=== PATIENT | female | born 1975 | race Caucasian/White ===

== ENCOUNTER 2016-12-04 12:13 | Outpatient (CLI) | payer OTHER ==
[2016-12-04 12:36] LABS: BASOPHILS % 0.4 (0.0-1.5); EOSINOPHILS % 3.5 % (0.0-6.8); LYMPHOCYTES # 2.4 # k/uL (0.6-4.0); MEAN CORPUSCULAR HEMOGLOBIN 29.9 pg (28.0-34.0); MONOCYTES # 0.2 # k/uL (0.0-0.9); MONOCYTES % 3.8 % (0.0-11.0); NEUTROPHILS # 3.7 # k/uL (1.4-7.7)
[2016-12-04 13:20] LABS: eGFR (African) > 60; eGFR (Non-African) > 60
== END 2016-12-04 12:15 ==
LOC: LAB 12:13
PROVIDERS: ATTEND Family Medicine
DX: Z00.00 Encounter for general adult medical examination without abnormal findings (principal)
CPT/HCPCS: 36415; 80053; 80061; 83001; 83036; 84443; 85025

== ENCOUNTER 2017-06-22 16:47 | Outpatient (CLI) | payer OTHER | END 2017-06-22 16:50 | LOC: LAB 16:47 | PROVIDERS: ATTEND Physician Assistant | DX: Z11.3 Encounter for screening for infections with a predominantly sexual mode of transmission (principal); N89.8 Other specified noninflammatory disorders of vagina | CPT/HCPCS: 36415; 86703; 86803; 87491; 87521; 87591 ==